=== PATIENT | female | born 1930 | race Caucasian/White ===

== ENCOUNTER 2016-12-04 17:06 | Inpatient (IN) ==
[2016-12-04] MEDS ORDERED: ACETAMINOPHEN 325 MG TABLET PO PRN (19:16)
[2016-12-04] MEDS ORDERED: BISACODYL 5 MG TABLET PO PRN (19:16)
[2016-12-04] MEDS ORDERED: ONDANSETRON 4 MG/2 ML VIAL IV PRN (19:16)
[2016-12-04] MEDS ORDERED: MORPHINE 2 MG/1 ML SYRINGE IV PRN (19:16)
--- NOTE | 2016-12-04 19:21 | Hospitalist History & Physical ---
Assessment and Plan (1) Cellulitis of right lower extremity Status: Acute Current Visit: Yes (2) Paroxysmal a-fib Status: Acute Current Visit: Yes (3) Chronic anticoagulation Status: Acute Current Visit: Yes (4) Essential hypertension Status: Acute Assessment and plan: Plan: Admit for IV antibiotics, check blood cultures Supportive care for pain Awaiting baseline labs, PT/INR as well Currently regular rhythm, regular rate, will start home medicines as appropriate Current Visit: Yes History of Present Illness Chief complaint: Sent from Dr. Maurer's office due to cellulitis History of present illness: Ms. Amezcua is a 86 year old female with hypertension, paroxysmal A. fib, on chronic anticoagulation, who is a direct admit from Dr. Maurer's office. She was there for routine follow-up of paroxysmal A. fib and anticoagulation. He noticed that she had severe cellulitis of the right lower extremity and his office call for direct admission. Family and patient at the bedside state that she has had increasing redness starting at the ankle and spreading up the leg for almost a week. It is exquisitely tender throughout the distal lower extremity. She rates her pain a 7 out of 10 at worst, no alleviating factors. Worse with weightbearing. She is also developed a bulla in the popliteal fossa. She saw Dr. Carvajal on Friday and was started on Bactrim with no improvement. She had a Doppler ultrasound which was negative for DVT couple days ago. They deny fever, chills, nausea vomiting or diarrhea. No chest pain or shortness of breath. Allergies Allergy/AdvReac Type Severity Reaction Status Date / Time No Known Allergies Allergy Verified 12/04/16 18:13 Medical,Surgical,& Family Hx - Medical History Cardio: History of: Cardiac Dysrhythmia (Paroxysmal A. fib), Hypertension Endocrine: No history of: Diabetes Mellitus (NIDDM) Respiratory: No history of: COPD - Surgical History HEENT Surgeries: Surgical HX of: Tonsilectomy & Adenoidectomy Abdominal Surgeries: Surgical HX of: Cholecystectomy Reproductive Surgeries: Surgical HX of;: Hysterectomy - Family History Family History: Reports;: Family Hypertension - Social History Smoking Status: Never smoker Frequency of Alcohol Use: None Type of Drug Use: None Marital Status: Unknown Functional capacity: independent ambulation Review of systems: A 12 point review of systems is negative except as specified in the HPI Exam - Constitutional Exam: EXAM: CONSTITUTIONAL: non toxic, NAD HEENT: NC, AT, OP benign, MELIDA, EOMI CV: RRR no m/g/r RESP: clear B/L, no w/r/r GI: abd soft, NT, ND, +bowel sounds INTEGUMENTARY: No rash EXTREMITIES: Cellulitis of the distal right lower extremity including the foot and ankle, large bulla present in the popliteal fossa, exquisitely tender, no purulent drainage; left lower extremity with large ecchymoses, pedal pulses intact NEURO: no focal deficits PSYCH: unremarkable, A/O x3 Results - Labs Labs: Labs pending - Diagnostic Findings Procedure: Ultrasound: image reviewed by me, report reviewed by me ( Doppler negative for DVT) Quality Measures - VTE Contraindication to Pharmacological VTE Prophylaxis: Already on Theraputic Agent , No Prophylaxis Needed Contraindication to Mechanical VTE Prophylaxis: Local Inflammation
[2016-12-04 20:08] LABS: Basophils # 0.1 10*3/uL (0.0-0.2); Basophils % 0.9 % (0.0-0.8); Eosinophils # 0.1 10*3/uL (0.0-0.87); Eosinophils % 1.5 % (0.00-10.9); Hematocrit 35.6 VOL% (35.7-47.0); Hemoglobin 12.1 GM/DL (12.0-16.0); Immature Granulocytes % 0.2 %; Immature Granulocytes Absolute 0.02 #; Lymphocytes # 2.1 10*3/uL (1.4-4.0); Lymphocytes % 23.5 % (21.3-54.2); Mean Corpuscular Hemoglobin 32 PG (27-34); Monocytes # 0.9 10*3/uL (0.11-0.8); Monocytes % 10.4 % (1.7-12.7); Neutrophils # 5.6 10*3/uL (1.4-7.4); Neutrophils % 63.5 % (38.7-73.9); Platelet Count 270 T/CUMM (130-400); Red Blood Count 3.83 MC/CUMM (3.8-5.5); Red Cell Distribution Width 13.3 % (9.3-17.3); White Blood Count 8.7 T/CUMM (4-12)
[2016-12-04 20:18] LABS: INR 1.1; PT Patient Result 11.3 SECS
[2016-12-04 20:28] LABS: Calcium 9.1 MG/DL (8.5-10.1); Osmolality,Calculated 283.1 MOS/KG (273-304); Potassium 3.9 MMOL/L (3.5-5.1)
[2016-12-04] MEDS: CLINDAMYCIN INJ 600 MG in PREMIX 1 EACH IV SCH (22:06)
[2016-12-04] MEDS: CEFTAROLINE 600 MG in SODIUM CHLORIDE 0.9% 100 ML IV SCH (22:32)
[2016-12-05] MEDS: CLINDAMYCIN INJ 600 MG in PREMIX 1 EACH IV SCH ×3 (04:26→21:26)
[2016-12-05 05:01] LABS: Basophils # 0.1 10*3/uL (0.0-0.2); Basophils % 0.7 % (0.0-0.8); Eosinophils # 0.2 10*3/uL (0.0-0.87); Hemoglobin 11.1 GM/DL (12.0-16.0); Immature Granulocytes % 0.5 %; Immature Granulocytes Absolute 0.04 #; Lymphocytes % 24.5 % (21.3-54.2); Mean Corpuscular HGB Conc 33.6 GM/DL (32-36); Mean Corpuscular Hemoglobin 32 PG (27-34); Mean Corpuscular Volume 93.8 FL (87-102); Mean Platelet Volume 10.2 FL (9.6-12.0); Monocytes # 0.9 10*3/uL (0.11-0.8); Monocytes % 10.9 % (1.7-12.7); Neutrophils % 61.4 % (38.7-73.9); Platelet Count 258 T/CUMM (130-400); Red Blood Count 3.52 MC/CUMM (3.8-5.5); Red Cell Distribution Width 13.4 % (9.3-17.3); White Blood Count 8.2 T/CUMM (4-12)
[2016-12-05 05:14] LABS: INR 1.1; PT Patient Result 11.4 SECS
[2016-12-05 05:39] LABS: Potassium 3.8 MMOL/L (3.5-5.1)
[2016-12-05] MEDS: CEFTAROLINE 600 MG in SODIUM CHLORIDE 0.9% 100 ML IV SCH ×2 (07:10→22:04)
--- NOTE | 2016-12-05 09:30 | Hospitalist Progress Note ---
Assessment and Plan (1) Cellulitis of right lower extremity Status: Acute Assessment and plan: Acute episode of infection of chronic venous insufficiency. Chronic anticoagulation with subtherapeutic INR associated with the patient utilizing a Coumadin dose less than prescribed Current Visit: Yes Hospitalist: Subjective Interval history: 86-year-old female with chronic venous insufficiency with past history of DVT episodes. She has been chronically maintained on Coumadin but had herself reduced the dose. She has had recurrent infections in her lower extremities in September treated with Keflex. Last Friday the family noticed increased redness and swelling. Patient was placed on Bactrim but continue to progress presenting to the emergency room for admission after outpatient evaluation. Patient was noted to have extensive chronic venous changes with acute cellulitis with bullous changes on the right leg. Her DVT scan was negative her INR was not therapeutic. She has been afebrile white count was normal and no evidence of systemic toxicity. Exam - Constitutional Vitals: Period Temp Pulse Resp BP Sys/Egan Pulse Ox Last 24 Hr 97.4 F-98.4 F 62-82 18-20 118-140/62-68 95-96 General appearance: normal weight, no acute distress - Respiratory Respiratory exam: Present: clear to auscultation bilaterally. Absent: rales, rhonchi, wheezes - Cardiovascular Cardiovascular exam: Present: regular rate and rhythm - GI/Abdominal GI/Abdominal exam: Present: normal bowel sounds. Absent: tenderness - Extremities Exam Extremities exam: Present: other (Warmth and erythema right lower extremity superimposed on chronic venous change) - Neurological Exam Neurological exam: Present: alert, oriented X3 Results - Labs CBC & BMP: 12/05/16 03:55 12/05/16 03:55 Labs: Pro time 11.4 Quality Measures - VTE Contraindication to Pharmacological VTE Prophylaxis: Already on Theraputic Agent , No Prophylaxis Needed Contraindication to Mechanical VTE Prophylaxis: Local Inflammation
--- NOTE | 2016-12-05 09:47 | Event Note ---
Iv. abx were started for refractory cellulitis. INR subtherapeutic, coumadin was resumed. She is hemodynamically stable. At this time, I recommend to continue anticoagulation for PAF. If she needs surgery for the cellulitis, this may be held in the. Please call with any questions.
[2016-12-05] MEDS: PANTOPRAZOLE 40 MG TABLET PO SCH (11:08)
[2016-12-05] MEDS: ENOXAPARIN 40 MG/0.4 ML SYRINGE SUBCUT SCH (11:08)
[2016-12-05] MEDS ORDERED: ZALEPLON 5 MG CAPSULE PO PRN (14:04)
[2016-12-05] MEDS: WARFARIN 4 MG TABLET PO SCH (17:45)
[2016-12-05] MEDS: TRAVOPROST 0.004% OPH SOLN 2.5 ML BOTTLE BOTH EYES SCH (21:27)
[2016-12-06] MEDS: CLINDAMYCIN INJ 600 MG in PREMIX 1 EACH IV SCH ×3 (05:06→18:47)
[2016-12-06 05:56] LABS: INR 1.1; PT Patient Result 11.2 SECS
[2016-12-06] MEDS: PANTOPRAZOLE 40 MG TABLET PO SCH (08:40)
[2016-12-06] MEDS: ENOXAPARIN 40 MG/0.4 ML SYRINGE SUBCUT SCH (08:41)
[2016-12-06] MEDS: CEFTAROLINE 600 MG in SODIUM CHLORIDE 0.9% 100 ML IV SCH ×2 (08:48→21:03)
[2016-12-06] MEDS: CLOTRIMAZOLE 1% CREAM 15 GM TUBE TOP SCH ×2 (13:24→21:02)
--- NOTE | 2016-12-06 17:38 | Hospitalist Progress Note ---
Assessment and Plan (1) Cellulitis of right lower extremity Status: Acute Assessment and plan: Continue IV antibiotics Teflaro and clindamycin and monitor for improvement. Current Visit: Yes (2) Paroxysmal a-fib Status: Chronic Assessment and plan: Continue Coumadin and monitor INR and keep between 2-2.5 as she bleeds easily. Current Visit: Yes Hospitalist: Subjective Interval history: 86-year-old female with chronic venous insufficiency with past history of DVT episodes. She has been chronically maintained on Coumadin but had herself reduced the dose. She has had recurrent infections in her lower extremities in September treated with Keflex. Last Friday the family noticed increased redness and swelling. Patient was placed on Bactrim but continue to progress presenting to the emergency room for admission after outpatient evaluation. Patient was noted to have extensive chronic venous changes with acute cellulitis with bullous changes on the right leg. Her DVT scan was negative her INR was not therapeutic. She has been afebrile white count was normal and no evidence of systemic toxicity. Exam - Constitutional Vitals: Period Temp Pulse Resp BP Sys/Egan Pulse Ox Last 24 Hr 97.0 F-99.1 F 67-87 18-20 106-129/62-80 94-99 General appearance: no acute distress - Head Head exam: Present: normal inspection, normocephalic, atraumatic - Eye Eye exam: Present: EOMI Pupils: Present: MELIDA - ENT ENT exam: Present: normal exam - Neck Neck exam: Present: normal inspection - Respiratory Respiratory exam: Present: clear to auscultation bilaterally - Cardiovascular Cardiovascular exam: Present: regular rate and rhythm - GI/Abdominal GI/Abdominal exam: Present: normal bowel sounds - Extremities Exam Extremities exam: Present: normal inspection, normal capillary refill - Back Exam Back exam: Present: normal inspection - Neurological Exam Neurological exam: Present: alert, oriented X3 - Psychiatric Psychiatric exam: Present: normal affect, normal mood - Skin Skin exam: Present: normal color, warm, erythema, rash Results - Labs CBC & BMP: 12/05/16 03:55 12/05/16 03:55 Quality Measures - VTE Contraindication to Pharmacological VTE Prophylaxis: Already on Theraputic Agent , No Prophylaxis Needed Contraindication to Mechanical VTE Prophylaxis: Local Inflammation
[2016-12-06] MEDS: WARFARIN 4 MG TABLET PO SCH (18:41)
[2016-12-06] MEDS: TRAVOPROST 0.004% OPH SOLN 2.5 ML BOTTLE BOTH EYES SCH (21:03)
[2016-12-07 02:49] LABS: INR 1.1; PT Patient Result 11.2 SECS
[2016-12-07 03:11] LABS: Calcium 9.4 MG/DL (8.5-10.1); Osmolality,Calculated 280.3 MOS/KG (273-304); Potassium 4.4 MMOL/L (3.5-5.1)
[2016-12-07] MEDS: CLINDAMYCIN INJ 600 MG in PREMIX 1 EACH IV SCH ×3 (05:10→19:14)
[2016-12-07] MEDS: CEFTAROLINE 600 MG in SODIUM CHLORIDE 0.9% 100 ML IV SCH ×2 (08:21→20:31)
[2016-12-07] MEDS: PANTOPRAZOLE 40 MG TABLET PO SCH (09:19)
[2016-12-07] MEDS: ENOXAPARIN 40 MG/0.4 ML SYRINGE SUBCUT SCH (09:20)
[2016-12-07] MEDS: CLOTRIMAZOLE 1% CREAM 15 GM TUBE TOP SCH ×2 (11:33→20:31)
[2016-12-07] MEDS: WARFARIN 4 MG TABLET PO SCH (17:50)
[2016-12-07] MEDS: TRAVOPROST 0.004% OPH SOLN 2.5 ML BOTTLE BOTH EYES SCH (20:30)
--- NOTE | 2016-12-07 20:43 | Hospitalist Progress Note ---
Assessment and Plan (1) Cellulitis of right lower extremity Status: Acute Assessment and plan: Continue IV antibiotics Teflaro and clindamycin and monitor for improvement. Current Visit: Yes (2) Paroxysmal a-fib Status: Chronic Assessment and plan: Continue Coumadin and monitor INR and keep between 2-2.5 as she bleeds easily. INR still subtherapeutic we have consulted pharmacy for Coumadin management Current Visit: Yes (3) Candidiasis of breast Status: Acute Assessment and plan: She is on topical Chlortrimazole will continue Current Visit: Yes (4) Physical deconditioning Status: Acute Assessment and plan: She is ambulating better physical therapy has been ordered Current Visit: Yes Hospitalist: Subjective Interval history: 6-year-old female with chronic venous insufficiency with past history of DVT episodes. She has been chronically maintained on Coumadin but had herself reduced the dose. She has had recurrent infections in her lower extremities in September treated with Keflex. Last Friday the family noticed increased redness and swelling. Patient was placed on Bactrim but continue to progress presenting to the emergency room for admission after outpatient evaluation. Patient was noted to have extensive chronic venous changes with acute cellulitis with bullous changes on the right leg. Her DVT scan was negative her INR was not therapeutic. She has been afebrile white count was normal and no evidence of systemic toxicity. Her cellulitis is slowly improving. & she is ambulating better Exam - Constitutional Vitals: Period Temp Pulse Resp BP Sys/Egan Pulse Ox Last 24 Hr 97.3 F-98.4 F 70-78 18-19 119-141/57-81 91-96 General appearance: no acute distress - Eye Eye exam: Present: EOMI Pupils: Present: MELIDA - ENT ENT exam: Present: normal exam, normal external ear exam - Neck Neck exam: Present: normal inspection - Respiratory Respiratory exam: Present: clear to auscultation bilaterally - Cardiovascular Cardiovascular exam: Present: regular rate and rhythm - GI/Abdominal GI/Abdominal exam: Present: normal bowel sounds, soft - Extremities Exam Extremities exam: Present: normal inspection, normal capillary refill - Back Exam Back exam: Present: normal inspection - Neurological Exam Neurological exam: Present: alert, oriented X3, normal gait - Psychiatric Psychiatric exam: Present: normal affect, normal mood - Skin Skin exam: Present: normal color, warm Results - Labs CBC & BMP: 12/05/16 03:55 12/07/16 02:17 Quality Measures - VTE Contraindication to Pharmacological VTE Prophylaxis: Already on Theraputic Agent , No Prophylaxis Needed Contraindication to Mechanical VTE Prophylaxis: Local Inflammation
[2016-12-07] MEDS ORDERED: ERGOCALCIFEROL 50,000 UNIT CAPSULE PO SCH (21:00)
[2016-12-08] MEDS: CLINDAMYCIN INJ 600 MG in PREMIX 1 EACH IV SCH ×3 (03:13→19:12)
[2016-12-08 05:46] LABS: PT Patient Result 11.1 SECS
[2016-12-08] MEDS: CEFTAROLINE 600 MG in SODIUM CHLORIDE 0.9% 100 ML IV SCH ×2 (06:49→20:23)
--- NOTE | 2016-12-08 09:30 | Hospitalist Progress Note ---
Assessment and Plan (1) Cellulitis of right lower extremity Status: Acute Assessment and plan: Subjectively better patient is afebrile will continue on IV antibiotics blood culture has been negative. Current Visit: Yes (2) Essential hypertension Status: Chronic Assessment and plan: Controlled Current Visit: Yes (3) Paroxysmal a-fib Status: Chronic Assessment and plan: Patient has been on anticoagulation. At present in sinus rhythm without any tachycardia. noted INR was not therapeutic. Pharmacy is managing and Coumadin dose was increased to 5 mg Current Visit: Yes (4) History of DVT (deep vein thrombosis) Status: Chronic Assessment and plan: Patient was noncompliant at home with warfarin. She has been on Coumadin for both paroxysmal A. fib and DVT. Pharmacy managing the dose Current Visit: Yes Hospitalist: Subjective Interval history: Mrs. Amezcua is a 36-year-old female with hypertension proximal A. fib and DVT. Patient was admitted with the pain redness and swelling right lower extremities with associated cellulitis. She had oral antibiotics prior to coming here but was not better. She has been on IV clindamycin and ceftazidime. She had been doing better with decreased redness no pain afebrile. Exam - Constitutional Vitals: Period Temp Pulse Resp BP Sys/Egan Pulse Ox Last 24 Hr 97.4 F-98.4 F 54-83 18-20 119-152/57-74 91-96 General appearance: no acute distress - Respiratory Respiratory exam: Present: clear to auscultation bilaterally. Absent: rales, rhonchi - Cardiovascular Cardiovascular exam: Present: regular rate and rhythm. Absent: tachycardia - GI/Abdominal GI/Abdominal exam: Present: normal bowel sounds, soft. Absent: distended, tenderness - Extremities Exam Extremities exam: Present: other (Large blood present behind right knee. No drainage. Patient has swelling of 4 right lower extremities including thigh posteriorly. Not tender redness improved per patient) - Neurological Exam Neurological exam: Present: alert, oriented X3 Results - Labs CBC & BMP: 12/05/16 03:55 12/07/16 02:17 Lab Results: I have reviewed the past 24 hour labs Quality Measures - VTE Contraindication to Pharmacological VTE Prophylaxis: Already on Theraputic Agent , No Prophylaxis Needed Contraindication to Mechanical VTE Prophylaxis: Local Inflammation
[2016-12-08] MEDS: PANTOPRAZOLE 40 MG TABLET PO SCH (10:10)
[2016-12-08] MEDS: ENOXAPARIN 40 MG/0.4 ML SYRINGE SUBCUT SCH (10:13)
[2016-12-08] MEDS: CLOTRIMAZOLE 1% CREAM 15 GM TUBE TOP SCH ×2 (12:40→20:28)
[2016-12-08] MEDS: WARFARIN 5 MG TABLET PO SCH (19:13)
[2016-12-08] MEDS: TRAVOPROST 0.004% OPH SOLN 2.5 ML BOTTLE BOTH EYES SCH (20:23)
[2016-12-09] MEDS: CLINDAMYCIN INJ 600 MG in PREMIX 1 EACH IV SCH ×3 (03:07→19:03)
[2016-12-09 05:29] LABS: INR 1.1; PT Patient Result 11.4 SECS
[2016-12-09] MEDS: CEFTAROLINE 600 MG in SODIUM CHLORIDE 0.9% 100 ML IV SCH ×2 (08:35→20:49)
[2016-12-09] MEDS: ENOXAPARIN 40 MG/0.4 ML SYRINGE SUBCUT SCH (08:40)
[2016-12-09] MEDS: PANTOPRAZOLE 40 MG TABLET PO SCH (08:41)
[2016-12-09] MEDS: CLOTRIMAZOLE 1% CREAM 15 GM TUBE TOP SCH ×2 (13:37→20:49)
--- NOTE | 2016-12-09 16:03 | Hospitalist Progress Note ---
Assessment and Plan (1) Candidiasis of breast Status: Acute Assessment and plan: Continue anti-fungal cream Current Visit: Yes (2) Cellulitis of right lower extremity Status: Acute Assessment and plan: Continue Teflaro and Clindamycin; will monitor Current Visit: Yes (3) Chronic anticoagulation Status: Acute Assessment and plan: warfarin not therapeutic; pharmacy managing Current Visit: Yes (4) History of DVT (deep vein thrombosis) Status: Chronic Assessment and plan: warfarin not therapeutic; pharmacy managing Current Visit: Yes (5) Paroxysmal a-fib Status: Chronic Assessment and plan: rate controlled' warfarin not therapeutic; pharmacy managing Current Visit: Yes Hospitalist: Subjective Interval history: Ms. Amezcua is with a history of atrial fibrillatio and hypertension that was admitted for right lower extremity cellulitis. Patient reports feeling better but is not quite to baseline. Patient reports continued tenderness in her right lower extremity. Exam - Constitutional Vitals: Period Temp Pulse Resp BP Sys/Egan Pulse Ox Last 24 Hr 97.3 F-98.3 F 70-85 18-20 120-151/64-84 93-95 General appearance: normal weight - Head Head exam: Present: normal inspection - Eye Eye exam: Present: EOMI - Respiratory Respiratory exam: Present: clear to auscultation bilaterally - Cardiovascular Cardiovascular exam: Present: regular rate and rhythm - GI/Abdominal GI/Abdominal exam: Present: normal bowel sounds, soft. Absent: mass, tenderness - Extremities Exam Extremities exam: Present: other (mild edema; moderate erythema of right leg; blood blister behind right knee) - Neurological Exam Neurological exam: Present: alert - Psychiatric Psychiatric exam: Present: normal affect, normal mood Results - Labs CBC & BMP: 12/05/16 03:55 12/07/16 02:17 Quality Measures - VTE Contraindication to Pharmacological VTE Prophylaxis: Already on Theraputic Agent , No Prophylaxis Needed Contraindication to Mechanical VTE Prophylaxis: Local Inflammation
[2016-12-09] MEDS: WARFARIN 5 MG TABLET PO SCH (18:15)
[2016-12-09] MEDS: TRAVOPROST 0.004% OPH SOLN 2.5 ML BOTTLE BOTH EYES SCH (21:01)
[2016-12-10] MEDS: CLINDAMYCIN INJ 600 MG in PREMIX 1 EACH IV SCH ×3 (03:22→21:43)
[2016-12-10 07:26] LABS: Basophils # 0.1 10*3/uL (0.0-0.2); Basophils % 0.8 % (0.0-0.8); Eosinophils # 0.2 10*3/uL (0.0-0.87); Eosinophils % 2.6 % (0.00-10.9); Hematocrit 35.8 VOL% (35.7-47.0); Hemoglobin 11.9 GM/DL (12.0-16.0); Immature Granulocytes % 0.6 %; Immature Granulocytes Absolute 0.04 #; Lymphocytes % 27.8 % (21.3-54.2); Mean Corpuscular HGB Conc 33.2 GM/DL (32-36); Mean Corpuscular Hemoglobin 31 PG (27-34); Mean Corpuscular Volume 93.7 FL (87-102); Monocytes # 0.8 10*3/uL (0.11-0.8); Monocytes % 10.5 % (1.7-12.7); Neutrophils # 4.2 10*3/uL (1.4-7.4); Neutrophils % 57.7 % (38.7-73.9); Platelet Count 292 T/CUMM (130-400); Red Blood Count 3.82 MC/CUMM (3.8-5.5); Red Cell Distribution Width 13.3 % (9.3-17.3); White Blood Count 7.2 T/CUMM (4-12)
[2016-12-10 08:00] LABS: Albumin 3.1 G/DL (3.4-5.0); Bilirubin,Total 0.8 MG/DL (0.2-1.0); Calcium 9.8 MG/DL (8.5-10.1); Osmolality,Calculated 280.3 MOS/KG (273-304); Potassium 4.6 MMOL/L (3.5-5.1); Total Protein 6.2 G/DL (6.4-8.3)
[2016-12-10] MEDS: CEFTAROLINE 600 MG in SODIUM CHLORIDE 0.9% 100 ML IV SCH ×2 (08:12→20:29)
[2016-12-10 09:13] LABS: PT Patient Result 11.1 SECS
[2016-12-10] MEDS: ENOXAPARIN 40 MG/0.4 ML SYRINGE SUBCUT SCH (09:21)
[2016-12-10] MEDS: PANTOPRAZOLE 40 MG TABLET PO SCH (09:21)
[2016-12-10] MEDS: CLOTRIMAZOLE 1% CREAM 15 GM TUBE TOP SCH ×2 (09:21→20:34)
--- NOTE | 2016-12-10 14:37 | Hospitalist Progress Note ---
Hospitalist: Subjective Interval history: Patient has had a bowel movement today and she describes it is soft. No diarrhea. She reports decreased redness of the right lower extremity. She has been ambulating with a walker in the pascual yesterday. Daughter reports the rash under her breasts is improving. Exam - Constitutional Vitals: Period Temp Pulse Resp BP Sys/Egan Pulse Ox Last 24 Hr 97.5 F-98.1 F 67-68 16-20 112-133/57-79 93-98 Exam: Patient is awake alert and oriented to person and place and situation, sitting on the side of the bed in no acute distress Regular rate and rhythm no murmurs Clear to auscultation bilaterally with good aeration nonlabored breathing noted Abdomen is soft nontender nondistended positive bowel sounds no organomegaly or masses appreciated Extremity exam she is warm and well-perfused. No clubbing or cyanosis. She does have right lower extremity erythema extending from approximately 2 cm below the patellar to the ankle with a black blister at the popliteal space on the right lower extremity. Other extremities are unremarkable except for bruising/ecchymoses Results - Labs CBC & BMP: 12/10/16 06:14 12/10/16 06:14 - Impressions (1) Inframammary cutaneous candidiasis - improving Status: Acute Assessment and plan: Continue anti-fungal cream Current Visit: Yes (2) Cellulitis of right lower extremity- improving Status: Acute Assessment and plan: Continue Teflaro and Clindamycin; will monitor. Will start lactobacillus. Current Visit: Yes (3) Chronic anticoagulation Status: Acute Assessment and plan: warfarin not therapeutic; pharmacy managing. Pharmacy is checking with the patient's profile trimmer to see if she would be a good candidate to switch to Eliquis. Current Visit: Yes (4) History of DVT (deep vein thrombosis) Status: Chronic Assessment and plan: warfarin not therapeutic; pharmacy managing. Considering changing to Eliquis Current Visit: Yes (5) Paroxysmal a-fib Status: Chronic Assessment and plan: rate controlled. warfarin not therapeutic; pharmacy managing. Considering changing to Eliquis Current Visit: Yes Discussed with daughter, patient, nurse, pharmacist. All questions answered. Quality Measures - VTE Contraindication to Pharmacological VTE Prophylaxis: Already on Theraputic Agent , No Prophylaxis Needed Contraindication to Mechanical VTE Prophylaxis: Local Inflammation
[2016-12-10 14:43] LABS: 25-Hydroxy D Total 13 ng/mL; 25-Hydroxy D2 < 4.0 ng/mL; 25-Hydroxy D3 13 ng/mL
[2016-12-10] MEDS ORDERED: WARFARIN 3 MG TABLET PO SCH (18:00)
[2016-12-10] MEDS: TRAVOPROST 0.004% OPH SOLN 2.5 ML BOTTLE BOTH EYES SCH (20:29)
[2016-12-11] MEDS: CLINDAMYCIN INJ 600 MG in PREMIX 1 EACH IV SCH ×3 (03:39→19:01)
[2016-12-11] MEDS: CEFTAROLINE 600 MG in SODIUM CHLORIDE 0.9% 100 ML IV SCH ×2 (09:25→19:28)
[2016-12-11] MEDS: LACTOBACILLUS ACIDOPHILUS/BULGARICUS CAPLET PO SCH (09:26)
[2016-12-11] MEDS: APIXABAN 5 MG TABLET PO SCH ×2 (09:28→20:44)
[2016-12-11] MEDS: PANTOPRAZOLE 40 MG TABLET PO SCH (09:28)
[2016-12-11] MEDS: CLOTRIMAZOLE 1% CREAM 15 GM TUBE TOP SCH ×2 (09:39→20:44)
--- NOTE | 2016-12-11 12:57 | Hospitalist Progress Note ---
Hospitalist: Subjective Interval history: Pt resting comfortably. She is interested in going to swing bed. No fever. No cp or SOB. Tolerating po. Exam - Constitutional Vitals: Period Temp Pulse Resp BP Sys/Egan Pulse Ox Last 24 Hr 96.9 F-97.9 F 63-73 14-20 110-134/56-74 94-98 Exam: Patient is awake alert and oriented to person and place and situation, lying in the bed in no acute distress Regular rate and rhythm no murmurs Clear to auscultation bilaterally with good aeration nonlabored breathing noted Minimal erythema under breasts bilaterally Abdomen is soft nontender nondistended positive bowel sounds no organomegaly or masses appreciated Extremity exam she is warm and well-perfused. No clubbing or cyanosis. She does have right lower extremity mild erythema extending from approximately 2 cm below the patellar to the ankle with a black blister at the popliteal space on the right lower extremity. Blister currently covered with mepilex. Other extremities are unremarkable except for bruising/ecchymoses Results - Labs CBC & BMP: 12/10/16 06:14 12/10/16 06:14 - Impressions (1) Inframammary cutaneous candidiasis - improving Status: Acute Assessment and plan: Continue anti-fungal cream and gauze to keep area dry Current Visit: Yes (2) Cellulitis of right lower extremity- improving Status: Acute Assessment and plan: Continue Teflaro and Clindamycin; will monitor. Cont lactobacillus. May be able to change to doxycycline at discharge Current Visit: Yes (3) Chronic anticoagulation Status: Acute Assessment and plan: warfarin not therapeutic so changed to Eliquis after pharmacy cleared with Cardiology Current Visit: Yes (4) History of DVT (deep vein thrombosis) Status: Chronic Assessment and plan: warfarin not therapeutic so changed to Eliquis after pharmacy cleared with Cardiology Current Visit: Yes (5) Paroxysmal a-fib Status: Chronic Assessment and plan: rate controlled. warfarin not therapeutic so changed to Eliquis after pharmacy cleared with Cardiology Current Visit: Yes Discussed with daughter, patient, nurse. All questions answered. Plans for rehab at discharge. Message and order written for case mgt. PT/OT ordered. Quality Measures - VTE Contraindication to Pharmacological VTE Prophylaxis: Already on Theraputic Agent , No Prophylaxis Needed Contraindication to Mechanical VTE Prophylaxis: Local Inflammation
[2016-12-11] MEDS: TRAVOPROST 0.004% OPH SOLN 2.5 ML BOTTLE BOTH EYES SCH (20:44)
[2016-12-12] MEDS: CLINDAMYCIN INJ 600 MG in PREMIX 1 EACH IV SCH (03:00)
[2016-12-12] MEDS: CEFTAROLINE 600 MG in SODIUM CHLORIDE 0.9% 100 ML IV SCH (07:43)
--- NOTE | 2016-12-12 08:28 | Discharge Summary ---
Hospital Course - Hospital Course Hospital Course: Pt is a 86 year old female who presented to the hospital with increased redness, pain and swelling in right leg a few days prior to admission. She had been seen by her PCP who started her on oral Bactrim without any significant improvement. She had a routine follow-up appointment with Dr. Maurer (cardiology) who noticed cellulitis and she was sent as a direct admit to the office for further evaluation and treatment. Patient was started on Teflaro and Clindamycin IV with significant improvement in her symptoms. She was started on lactobacillus as well. She was continued on warfarin therapy for history of DVT but had a lot of difficulty regulating the dose. 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 For paroxysmal atrial fibrillation, patient was in sinus rhythm and was rate controlled. Patient was also noted to have inframammary cutaneous candidiasis and was treated with an antifungal cream and gauze keep the area dry. This too improved with treatment. Patient was seen by physical and Occupational Therapy during hospitalization who recommended home health at discharge for ongoing rehab. Once this was arranged patient was discharged home with her daughter with home health for ongoing care. - Time spent with patient Time with patient DS: Greater than 30 minutes (35 minutes) Diagnosis - Discharge Diagnosis (1) Candidiasis of breast Status: Acute (2) Cellulitis of right lower extremity Status: Acute (3) Chronic anticoagulation Status: Chronic (4) Physical deconditioning Status: Acute (5) Essential hypertension Status: Chronic (6) History of DVT (deep vein thrombosis) Status: Chronic (7) Paroxysmal a-fib Status: Chronic Specialty Discharge - Follow Up or Referrals Follow up with: Ramakrishna Carvajal MD [Primary Care Provider] - 2 Weeks Christopher Maurer MD [Physician] - 1 Month Discharge Plan - Discharge Data Disposition: Home Health Service Condition at Discharge: Stable Discharge Diet: advance to your usual diet Activity: as per physical therapy Contact your physician if you experience:: fever over 101, Difficulty voiding, Redness or swelling, Nausea/Vomiting, Shortness of breath, Bleeding, pain uncontrolled by pain medications - Discharge Medications New Clotrimazole 1% Cream [Lotrimin 1% Cream] 1 applic TOP BID #1 applic Ergocalciferol [Drisdol] 50,000 unit PO Q7D #4 capsule Acetaminophen Tab [Tylenol Tab] 650 mg PO Q4H PRN tablet PRN Reason: Fever, Headache, Mild Pain Apixaban [Eliquis] 5 mg PO BID #30 tablet Lactobacillus Acidoph/Bulgar [Bacid] 2 caplet PO DAILY #30 caplet Doxycycline Hyclate 100 mg PO BID #14 capsule Continue diphenhydrAMINE HCl [diphenhydrAMINE Tab] 25 mg PO BEDTIME PRN PRN Reason: Allergy Symptoms Travoprost 0.004% Oph Soln [Travatan Z] 1 drop BOTH EYES BEDTIME Omeprazole 20 mg PO BID Discontinued Sulfameth/Trimeth 800-160 Tab [Bactrim DS Tab] 1 tablet PO BID Triamterene/Hydrochlorothiazid [Triamterene-Hctz 37.5-25 mg Tb] 1 each PO DAILY Triamcinolone Acetonide [Triamcinolone 0.1% Cream] 1 applic TOP BID Warfarin Sodium 3 mg PO DAILY - Follow Up or Referral - Forms/Instructions Exam - Constitutional Vitals: Period Temp Pulse Resp BP Sys/Egan Pulse Ox Last 24 Hr 97.2 F-98.3 F 66-72 16-20 121-139/61-75 94-96 Exam: See physical exam from 12/11/2016 as it is unchanged DS: Provider Date of admission: 12/04/16 17:25 Primary care physician: Ramakrishna Carvajal, Attending physician on admission: Bj Grewal DO Consults: 12/07/16 18:38 Consult to Pharmacy [CONS] Routine Reason for Pharmacy Consult: Other Comment: Consult for Coumadin management please 12/11/16 07:26 Consult to Case Mgmt/Social Srvs [CONS] Routine Reason for Case Mgmt/Social Srvs: Discharge Planning Consult Comment: pt lives alone and weak. Please check for possble SNF 12/11/16 12:57 Consult to Occupational Therapy [CONS] Routine Reason for Occupational Therapy: Evaluate and Treat Consult to Physical Therapy [CONS] Routine Reason for Physical Therapy: Evaluate and Treat Discharging clinician: Cherise Kim MD
[2016-12-12] MEDS: PANTOPRAZOLE 40 MG TABLET PO SCH (08:41)
[2016-12-12] MEDS: LACTOBACILLUS ACIDOPHILUS/BULGARICUS CAPLET PO SCH (08:42)
[2016-12-12] MEDS: APIXABAN 5 MG TABLET PO SCH (08:42)
[2016-12-12 11:39] VITALS: BP 139/66
[2016-12-12] MEDS: CLOTRIMAZOLE 1% CREAM 15 GM TUBE TOP SCH (11:58)
== END 2016-12-12 13:25 | disposition home health service (06) | DRG 300 ==
LOC: SUATTDRO 17:25 → N.3E 17:25
PROVIDERS: ADMIT Internal Medicine; ATTEND Pediatrics